=== PATIENT | female | born 1960 | race Hispanic/Latino ===

== ENCOUNTER 2020-08-24 11:50 | Emergency (ER) | payer MEDICAID ==
[~2020-08-24] VITALS: Ht 154.9 cm; Wt 118.7 kg
[2020-08-24] MEDS ORDERED: LOSA100T5 PO (12:01)
[2020-08-24 13:28] LABS: BASO % 0.2 % (0.0-1.0); EOS # 0.1 10^3/uL (0.0-0.5); EOS % 0.7 % (0.0-3.0); HEMATOCRIT 33.4 % (42.0-52.0); HEMOGLOBIN 9.8 g/dl (13.5-17.5); LYMPH # 2.2 10^3/uL (1.5-5.0); LYMPH % 18.5 % (24.0-44.0); MEAN CORPUSCULAR HEMOGLOBIN 26.4 pg (27.0-33.0); MEAN CORPUSCULAR HGB CONC 29.3 g/dl (32.0-36.5); MONO # 0.9 10^3/uL (0.0-0.8); MONO % 7.4 % (0.0-5.0); NEUTROPHILS # 8.8 10^3/uL (1.5-8.5); NEUTROPHILS % 72.7 % (36.0-66.0); PLATELET COUNT, AUTOMATED 253 10^3/uL (150-450); RED BLOOD COUNT 3.71 10^6/uL (4.30-6.10); WHITE BLOOD COUNT 12.1 10^3/uL (4.0-10.0)
[2020-08-24 13:47] LABS: INR 1.21; PROTHROMBIN TIME 15.6 SECONDS (12.5-14.3)
[2020-08-24 13:50] LABS: D-DIMER QUANT 793.03 ng/ml (<500)
[2020-08-24 14:13] LABS: ALBUMIN 3.2 GM/DL (3.2-5.2); ALT/SGPT 15 U/L (12-78); BILIRUBIN,DIRECT < 0.1 MG/DL (0.0-0.2); BILIRUBIN,TOTAL 1.1 MG/DL (0.2-1.0); BLOOD UREA NITROGEN 11 MG/DL (7-18); CALCIUM LEVEL 9.1 MG/DL (8.8-10.2); CARBON DIOXIDE LEVEL 28 MEQ/L (21-32); CHLORIDE LEVEL 107 MEQ/L (98-107); CK-MB VALUE MASS < 1.0 NG/ML (<3.6); CPK CREATINE PHOSPHOKINASE 199 U/L (39-308); CREATININE FOR GFR 0.82 MG/DL (0.70-1.30); GLOMERULAR FILTRATION RATE > 60.0 (>49); GLUCOSE, FASTING 81 MG/DL (70-100); NT-PRO BNP 867 PG/ML (<125); POTASSIUM SERUM 5.9 MEQ/L (3.5-5.1); SODIUM LEVEL 139 MEQ/L (136-145); TOTAL PROTEIN 8.1 GM/DL (6.4-8.2); TROPONIN I < 0.02 NG/ML (< 0.10)
--- NOTE | 2020-08-24 15:42 | REP ---
INDICATION: DYSPNEA/COUGH. COMPARISON: None. TECHNIQUE: Portable upright AP chest radiograph. FINDINGS: The lungs are well inflated and free of infiltrate. Pleural angles are sharp. Heart size is normal. Pulmonary vasculature is not increased. Monitoring electrodes are seen. No significant bony abnormality is noted . IMPRESSION: No active disease. <Electronically signed by Jas Cavanaugh > 08/24/20 [id number]
[2020-08-24] MEDS ORDERED: KETOROLAC 30 MG/ML 1ML VIAL IV ONE (15:45)
[2020-08-24] MEDS ORDERED: ISOVUE-370 76% 100ML VIAL As Ordered ONE (15:49)
--- NOTE | 2020-08-24 16:22 | REP ---
INDICATION: chest pain COMPARISON: None. TECHNIQUE: Axial contrast enhanced images from the thoracic inlet to the upper abdomen using pulmonary embolus technique with multiplanar re-formations. 75 ml Isovue 370 intravenous contrast material administered without complication. This CT examination was performed using the following dose reduction techniques: Automated exposure control, adjustment of mA and/or kv according to the patient's size, and use of iterative reconstruction technique. FINDINGS: Examination is somewhat limited due to motion artifact. However, no main or 2nd order pulmonary arterial emboli are identified. The lung alexander demonstrate trace right basilar linear fibroatelectatic changes which are nonspecific. No consolidation. No significant nodule or mass lesion. No pleural effusion. No pneumothorax. Tracheobronchial tree is patent. Further evaluation of the mediastinum demonstrates atherosclerotic changes to the thoracic aorta and coronary arteries without aortic aneurysm/dissection or cardiomegaly. No pericardial effusion. No axillary, hilar, or mediastinal adenopathy. Surrounding musculoskeletal structures demonstrate degenerative changes. Limited upper abdomen demonstrates normal bilateral adrenal glands and evidence for prior cholecystectomy. IMPRESSION: 1. Limited examination without obvious pulmonary embolus. 2. Minimal linear fibroatelectatic changes at the right base without further consolidation or effusion. <Electronically signed by Francis Dominguez > 08/24/20 [id number]
[2020-08-24] MEDS ORDERED: NORC1TAB7 PO (17:39)
[2020-08-24 18:02] VITALS: BP 123/58
--- NOTE | 2020-08-25 13:29 | ECGEPIP ---
[facility] - ED Test Date: 2020-08-24 Pat Name: ANDREW JACKSON Department: Room: - Gender: Male [employer]: BRYAN : 1960 Requested By: ERIK Sorensen Order Number: [id number] Reading MD: Norah Haley Measurements Intervals Taylor Rate: 70 P: 53 NE: 117 QRS: -20 QRSD: 122 T: 57 QT: 414 QTc: 449 Interpretive Statements SINUS RHYTHM WITH SHORT NE INTERVAL POSSIBLE LEFT ATRIAL ENLARGEMENT POSSIBLE RIGHT VENTRICULAR CONDUCTION DELAY LEFT VENTRICULAR HYPERTROPHY AND ST-T CHANGE VS ISCHEMIA No prior Electronically Signed on 08-25-2020 13:29:41 EST by Norah Haley
== END 2020-08-24 18:12 | disposition home or self-care (01) ==
LOC: M ED 11:50 → EDSEX 11:50 → M ED 18:12
DX: R07.89 Other chest pain (principal); R06.02 Shortness of breath; I10 Essential (primary) hypertension; Z79.899 Other long term (current) drug therapy
CPT/HCPCS: 71045; 71275; 80048; 80076; 82550; 82553; 83880; 84443; 84484; 85025; 85379; 85610; 87486; 87581; 87633; 87798; 93005; 93041; 94760; 99285; J1885; Q9967